=== PATIENT | male | born 1980 | race Caucasian/White ===

== ENCOUNTER 2017-04-10 20:38 | Emergency (ER) | payer SELFPAY ==
[~2017-04-10] VITALS: Ht 185.4 cm; Wt 92.6 kg
[2017-04-10 23:25] LABS: HEMATOCRIT 38.2 % (38.0-50.0); MCH 29.3 PG (29.0-34.0); PLATELET COUNT 116 K/uL (156-360); RBC DIS.WIDTH-CV 13.2 % (11.8-14.6); RBC DIS.WIDTH-SD 41.1 % (39-53); RED BLOOD COUNT 4.44 M/uL (4.00-5.50); WHITE BLOOD COUNT 8.7 K/uL (4.1-10.2)
[2017-04-10 23:45] LABS: TROP-I INTERPRETATION NEGATIVE; TROPONIN-I < 0.01 ng/mL (0.0-0.30)
[2017-04-10 23:51] LABS: CHLORIDE 88 MEQ/L (99-109); CREATINE KINASE 243 IU/L (1-294); CREATININE 0.5 MG/DL (0.6-1.3); GFR ESTIMATE (CALCULATED) > 59 mL/min/ (58.99-99999); GLUCOSE 109 mg/dL (70-99); POTASSIUM 3.7 MEQ/L (3.7-5.4); SODIUM 124 MEQ/L (136-147); UREA NITROGEN (BUN) 7 mg/dL (9-23)
[2017-04-11 00:01] LABS: VALPROIC ACID (DEPAKOTE) 57.3 MCG/ML (50-100)
[2017-04-11 01:06] VITALS: BP 130/74
== END 2017-04-11 01:07 | disposition home or self-care (01) ==
LOC: EME 20:38
PROVIDERS: Physician Assistant
DX: G40.909 Epilepsy, unspecified, not intractable, without status epilepticus (principal); S09.8XXA Other specified injuries of head, initial encounter; S20.212A Contusion of left front wall of thorax, initial encounter; S00.83XA Contusion of other part of head, initial encounter; M25.512 Pain in left shoulder; W19.XXXA Unspecified fall, initial encounter; E87.1 Hypo-osmolality and hyponatremia; Z87.820 Personal history of traumatic brain injury; Z87.891 Personal history of nicotine dependence
CPT/HCPCS: 70450; 71046; 80048; 80164; 82550; 84484; 85027; 93005; 99281; 99284